=== PATIENT | female | born 1945 | race Two or more races ===

== ENCOUNTER 2020-05-08 05:30 | Day surgery (SDC) | payer OTHER ==
[2020-05-08] MEDS ORDERED: MACROBID 100 M100 MG PO (09:25)
[2020-05-08] MEDS ORDERED: ULTRACET PO (09:25)
== END 2020-05-08 13:35 | disposition home or self-care (01) ==
LOC: CIR.AMB 05:30
PROVIDERS: ATTEND Obstetrics & Gynecology Gynecology
DX: N88.8 Other specified noninflammatory disorders of cervix uteri (principal); Z20.828 Contact with and (suspected) exposure to other viral communicable diseases

== ENCOUNTER 2024-11-11 05:07 | Day surgery (SDC) | payer OTHER ==
[2024-11-09 11:25] VITALS: BP 124/79
[~2024-11-11] VITALS: Ht 157.5 cm; Wt 66.2 kg
[~2024-11-11 05:07] MED LIST: ARIMIDEX; CENTRUM CHEWAB1 EAC1 PO; CRESTOR40 MG; FOSAMAX70 MG; MACROBID 100 M100 MG PO; ULTRACET PO; VITAMIN D
[2024-11-11] MEDS ORDERED: CEFAZOLIN SODIUM 1,000 MG VIAL ONE (11:10)
[2024-11-11] MEDS ORDERED: CEFAZOLIN SODIUM 1,000 MG VIAL IV ONE (17:45)
[2024-11-11] MEDS ORDERED: MORPHINE SULFATE 4 MG/ML VIAL IV ONE (21:15)
== END 2024-11-11 22:30 | disposition home or self-care (01) ==
LOC: CIR.AMB 05:07
PROVIDERS: ATTEND Surgery
DX: C50.112 Malignant neoplasm of central portion of left female breast (principal); R59.0 Localized enlarged lymph nodes; Z91.040 Latex allergy status